=== PATIENT | female | born 1975 | race Caucasian/White ===

== ENCOUNTER 2017-07-15 14:04 | Emergency (ER) | payer MEDICARE ==
[~2017-07-15] VITALS: Ht 157.5 cm; Wt 48.6 kg
[2017-07-15 14:10] VITALS: TEMP 98.3
[2017-07-15 16:48] VITALS: BP 95/63; PULSE 74
== END 2017-07-15 16:40 | disposition home or self-care (01) ==
LOC: COL.ER 14:04
DX: S96.911A Strain of unspecified muscle and tendon at ankle and foot level, right foot, initial encounter (principal); F17.210 Nicotine dependence, cigarettes, uncomplicated; Z88.6 Allergy status to analgesic agent; X50.1XXA Overexertion from prolonged static or awkward postures, initial encounter; Y92.009 Unspecified place in unspecified non-institutional (private) residence as the place of occurrence of the external cause